=== PATIENT | female | born 2000 | race Caucasian/White ===

== ENCOUNTER 2018-06-21 03:19 | Outpatient (CLI) | payer MEDICAID ==
[2018-06-21 03:32] VITALS: BP 119/61
[2018-06-21] MEDS ORDERED: VISTARIL PO NR (08:17)
== END 2018-06-21 08:27 | disposition home or self-care (01) ==
LOC: TRG 03:19
PROVIDERS: ATTEND Obstetrics & Gynecology
DX: O62.8 Other abnormalities of forces of labor (principal); Z3A.39 39 weeks gestation of pregnancy
CPT/HCPCS: 59025; Q0177

== ENCOUNTER 2018-06-22 04:40 | Inpatient (IN) | payer MEDICAID ==
[2018-06-22] MEDS ORDERED: POLYCILLIN/NS 2 GM/100 ML 2 GM/100 ML BAG IV ONE (05:15)
[2018-06-22] MEDS ORDERED: LACTATED RINGERS 1,000 ML IV ONE ×2 (05:15→09:00)
[2018-06-22 06:04] LABS: Hemoglobin 9.5 gm/dl (10.1-14.3); Mean Corpuscular HGB Conc 33 % (30-34); Mean Corpuscular Volume 71 fl (79-97); Platelet Count 182 K/mm3 (140-440); Red Blood Count 4.07 M/mm3 (3.65-5.03); Red Cell Distribution Width 17.8 % (13.2-15.2)
--- NOTE | 2018-06-22 06:14 | Ultrasound Report ---
FINAL REPORT EXAM: US OB LIMITED HISTORY: Labor TECHNIQUE: A limited OB sonogram was obtained for evaluation of position. FINDINGS: The fetus is in cephalic presentation. The heart rate is 144 BPM. IMPRESSION: Cephalic presentation. The heart rate is 144 BPM.
[2018-06-22 06:40] LABS: Mean Corpuscular Hemoglobin 23 pg (28-32)
[2018-06-22] MEDS ORDERED: SUBLIMAZE ONE (07:26)
[2018-06-22] MEDS ORDERED: BRETHINE IVP PRN (07:38)
[2018-06-22] MEDS ORDERED: XYLOCAINE 2% INFILTRATI ONE (07:38)
[2018-06-22] MEDS ORDERED: STADOL IV PRN (07:38)
[2018-06-22] MEDS ORDERED: SUBLIMAZE IV PRN (07:38)
[2018-06-22] MEDS ORDERED: NUBAIN IV PRN (07:38)
[2018-06-22] MEDS ORDERED: BRETHINE SUB-Q PRN (07:38)
[2018-06-22] MEDS ORDERED: ZOFRAN IV PRN ×2 (07:38→21:31)
--- NOTE | 2018-06-22 07:47 | History and Physical Report ---
History of Present Illness Date of examination: 06/22/18 Date of admission: 06/22/18 07:02 Chief complaint: Labor History of present illness: Past History : 1 Term Births: 0 Premature Births: 0 Living Children: 0 Para: 0 Mult. Births: 0 Prev : 0 Prev. attempt? 0 Aborta: 0 Elect. Ab: 0 Spont. Ab: 0 Ectopics: 0 Past Medical History: Negative Past Medical History Past Surgical History: negative Past Medical History Anesthesia Complications: negative Anemia: negative Autoimmune Disorder: negative Bleeding Disorder: negative Blood Transfusions: negative Breast Disease: negative Diabetes: negative Heart Disease: negative Hypertension: negative Hepatitis/Liver Disease: negative Kidney Disease/UTI: negative Neurologic/Epilepsy/Migraines: negative Phlebitis/Varicosities: negative Psychiatric: negative Pulmonary Disease/Asthma: negative Thyroid Disease: negative Hospitalizations: negative Surgery (Non-nurse consultant): negative Family Hx: no known family history of illness or cancer Social Hx: no ETOH/smoking/drugs not working Infection History Hx of STD: none HIV Risk Eval: low risk Hepatitis B Risk Eval: low risk Personal hx. of genital herpes: no Partner hx. of genital herpes: no Rash, Viral, or Febrile illness since last LMP? no Varicella/Chicken Pox Status: Immunized Genetic History Congenital Heart Defect: Mom: no Dad: no Adan Disease: Mom: no Dad: no Thalassemia Mom: no Dad: no Neural Tube Defect Mom: no Dad: no Down's Syndrome Mom: no Dad: no Ilan-Sachs Mom: no Dad: no Sickle Cell Disease/Trait Mom: no Dad: no Hemophilia Mom: no Dad: no Muscular Dystrophy Mom: no Dad: no Cystic Fibrosis Mom: no Dad: no [place] Chorea Mom: no Dad: no Mental Retardation Mom: no Dad: no Fragile X Mom: no Dad: no Other Genetic/Chromosomal Disorder Mom: no Dad: no Child w/other defect Mom: no Dad: no Enviromental Exposures Xray Exposure: no Medication, drug, or alcohol use since LMP: no Chemical/Other Exposure: no Exposure to Cat Liter: no Hx of Parvovirus (Fifth Disease): no Occupational Exposure to Children: none Current Allergies (reviewed today): No known allergies Past History - Obstetrical History Expected Date of Delivery: 06/24/18 Actual Gestation: 39 Week(s) 5 Day(s) : 1 Medications and Allergies Allergies Allergy/AdvReac Type Severity Reaction Status Date / Time No Known Allergies Allergy Unverified 06/21/18 08:16 Home Medications Medication Instructions Recorded Confirmed Last Taken Type No Known Home Medications [No 06/21/18 06/21/18 Unknown History Reported Home Medications] Active Meds: Active Medications Butorphanol Tartrate (Stadol) 2 mg IV Q2H PRN PRN Reason: Pain , Severe (7-10) Ephedrine Sulfate (Ephedrine Sulfate) 10 mg IV Q2M PRN PRN Reason: Hypotension Fentanyl (Sublimaze) 100 mcg IV Q2H PRN PRN Reason: Labor Pain Lactated Ringer's (Lactated Ringers) 1,000 mls @ 125 mls/hr IV DIRECT KVNG Oxytocin/Sodium Chloride (Pitocin/Ns 20 Unit/1000ml Drip) 20 units in 1,000 mls @ 125 mls/hr IV DIRECT KVNG Oxytocin/Sodium Chloride (Pitocin/Ns 30 Unit/500ml) 30 units in 500 mls @ 4 mls /hr IV TITR KVNG; Protocol Lidocaine (Xylocaine 2%) 20 ml INFILTRATI ONCE ONE Stop: 06/22/18 07:39 Mineral Oil (Mineral Oil) 30 ml PO QHS PRN PRN Reason: Constipation Nalbuphine HCl (Nubain) 10 mg IV Q2H PRN PRN Reason: Pain, Moderate (4-6) Ondansetron HCl (Zofran) 4 mg IV Q8H PRN PRN Reason: Nausea And Vomiting Terbutaline Sulfate (Brethine) 0.25 mg SUB-Q ONCE PRN PRN Reason: Hyperstimulation/Hypertonicity Review of Systems All systems: negative Genitourinary: contractions - Vital Signs Vital signs: Vital Signs Temp Pulse Resp BP 97.9 F 76 20 138/93 06/22/18 04:52 06/22/18 04:52 06/22/18 04:52 06/22/18 04:52 Temp Pulse Resp BP Pulse Ox 97.9 F 76 20 138/93 06/22/18 04:52 06/22/18 04:52 06/22/18 04:52 06/22/18 04:52 - Physical Exam Breasts: Positive: deferred Cardiovascular: Regular rate Abdomen: Positive: soft. Negative: tenderness - Obstetrical FHR: category 1 Cervical Dilatation: 4 (per RN) Uterine Contraction Pattern: Irregular Results Result Diagrams: 06/22/18 04:44 Abnormal lab results 06/22/18 Range/Units 04:44 Hgb 9.5 L (10.1-14.3) gm/dl Hct 29.0 L (30.3-42.9) % MCV 71 L (79-97) fl MCH 23 L (28-32) pg RDW 17.8 H (13.2-15.2) % All other labs normal. Assessment and Plan - Patient Problems (1) 39 weeks gestation of Current Visit: Yes Status: Acute Plan to address problem: Admit Anticipate vaginal delivery (2) Active labor Current Visit: Yes Status: Acute (3) Anemia affecting in third trimester Current Visit: Yes Status: Acute
[2018-06-22] MEDS ORDERED: BENADRYL IV PRN (07:49)
[2018-06-22] MEDS ORDERED: NARCAN 2 MG/2 ML IV PRN (07:49)
[2018-06-22] MEDS ORDERED: NORMOSOL R PH IV ONE (07:49)
--- NOTE | 2018-06-22 07:49 | Anesthesia Consultation ---
Anesthesia Consult and Med Hx Date of service: 06/22/18 - Airway Anesthetic Teeth Evaluation: Good ROM Head & Neck: Adequate Mental/Hyoid Distance: Adequate Mallampati Class: Class II Intubation Access Assessment: Probably Good - Pulmonary Exam CTA: Yes - Cardiac Exam Cardiac Exam: RRR - Pre-Operative Health Status ASA Pre-Surgery Classification: ASA2 Proposed Anesthetic Plan: Epidural - Pulmonary Hx Smoking: No Hx Asthma: No - Cardiovascular System Hx Hypertension: No - Central Nervous System Hx Seizures: No Hx Back Pain: Yes (with ) Hx Psychiatric Problems: No - Endocrine Hx Renal Disease: No Hx Hypothyroidism: No Hx Hyperthyroidism: No - Hematic Hx Anemia: No Hx Sickle Cell Disease: No - Other Systems Hx Alcohol Use: No
[2018-06-22] MEDS ORDERED: LACTATED RINGERS 1,000 ML IV SCH ×2 (08:00→17:00)
[2018-06-22] MEDS ORDERED: PITOCin/NS 30 UNIT/500ML 30 UNITS/500 ML BAG IV SCH (08:00)
[2018-06-22] MEDS ORDERED: PITOCin/NS 20 UNIT/1000ML DRIP 20 UNITS/1,000 ML BAG IV SCH ×3 (08:00→21:31)
[2018-06-22] MEDS: fentaNYL-BUPIV 2 MCG/ML-0.125% 200 MCG/100 ML BAG EPIDURAL SCH ×2 (08:59→14:50)
[2018-06-22] MEDS ORDERED: LACTATED RINGERS 1,500 ML IV ONE (09:00)
--- NOTE | 2018-06-22 09:54 | Progress Note ---
Assessment and Plan Continue current management - Patient Problems (1) 39 weeks gestation of Current Visit: Yes Status: Acute (2) Active labor Current Visit: Yes Status: Acute (3) Anemia affecting in third trimester Current Visit: Yes Status: Acute Subjective - Subjective Date of service: 06/22/18 Principal diagnosis: IUP@39 weeks, labor Patient reports: contractions Objective - Vital Signs Vital Signs: Vital Signs - 12hr 06/22/18 06/22/18 06/22/18 04:52 07:59 08:03 Temperature 97.9 F 97.5 F L Pulse Rate 76 81 78 Respiratory 20 20 Rate Blood Pressure 132/75 Blood Pressure 138/93 132/75 [Left] O2 Sat by Pulse 97 Oximetry 06/22/18 06/22/18 06/22/18 08:05 08:09 08:10 Temperature Pulse Rate 80 79 73 Respiratory Rate Blood Pressure Blood Pressure [Left] O2 Sat by Pulse 97 93 99 Oximetry 06/22/18 06/22/18 06/22/18 08:15 08:20 08:22 Temperature Pulse Rate 83 69 83 Respiratory Rate Blood Pressure 134/73 Blood Pressure [Left] O2 Sat by Pulse 98 98 Oximetry 06/22/18 06/22/18 06/22/18 08:24 08:27 08:29 Temperature Pulse Rate 82 71 74 Respiratory Rate Blood Pressure 130/73 134/73 Blood Pressure [Left] O2 Sat by Pulse 99 87 98 Oximetry 06/22/18 06/22/18 06/22/18 08:30 08:33 08:34 Temperature Pulse Rate 77 81 79 Respiratory Rate Blood Pressure 127/61 117/56 Blood Pressure [Left] O2 Sat by Pulse 98 Oximetry 06/22/18 06/22/18 06/22/18 08:39 08:44 08:46 Temperature Pulse Rate 89 84 81 Respiratory Rate Blood Pressure 120/58 Blood Pressure [Left] O2 Sat by Pulse 99 98 Oximetry 06/22/18 06/22/18 06/22/18 08:49 08:54 08:55 Temperature Pulse Rate 87 80 80 Respiratory Rate Blood Pressure 115/57 Blood Pressure [Left] O2 Sat by Pulse 99 97 Oximetry 06/22/18 06/22/18 06/22/18 08:59 09:04 09:05 Temperature Pulse Rate 85 80 75 Respiratory Rate Blood Pressure 121/63 Blood Pressure [Left] O2 Sat by Pulse 98 98 Oximetry 06/22/18 06/22/18 06/22/18 09:09 09:14 09:16 Temperature Pulse Rate 78 73 75 Respiratory Rate Blood Pressure 130/68 Blood Pressure [Left] O2 Sat by Pulse 98 99 Oximetry 06/22/18 06/22/18 06/22/18 09:19 09:24 09:27 Temperature Pulse Rate 79 95 H 90 Respiratory Rate Blood Pressure 133/64 Blood Pressure [Left] O2 Sat by Pulse 99 98 Oximetry 06/22/18 06/22/18 06/22/18 09:29 09:34 09:35 Temperature Pulse Rate 83 75 70 Respiratory Rate Blood Pressure 129/68 Blood Pressure [Left] O2 Sat by Pulse 98 98 Oximetry 06/22/18 06/22/18 06/22/18 09:39 09:44 09:45 Temperature Pulse Rate 74 81 80 Respiratory Rate Blood Pressure 125/68 Blood Pressure [Left] O2 Sat by Pulse 97 97 Oximetry 06/22/18 06/22/18 09:49 09:54 Temperature Pulse Rate 76 85 Respiratory Rate Blood Pressure Blood Pressure [Left] O2 Sat by Pulse 99 98 Oximetry - Exam Cardiovascular: Regular rate Lungs: Normal air movement Abdomen: Absent: tenderness Vulva: both: normal Uterus: Present: fundal height above umbilicus FHR: category 1 Uterine Contraction Monitor Mode: External Cervical Dilatation: 7 Cervical Effacement Percentage: 80 station: 0 AROM, clear, IUPC placed without difficulty Uterine Contraction Frequency (min): 2-3 Uterine Contraction Pattern: Irregular - Labs Labs: Abnormal Labs 06/22/18 04:44 Hgb 9.5 L Hct 29.0 L MCV 71 L MCH 23 L RDW 17.8 H Laboratory Results - last 24 hr 06/22/18 04:44 WBC 10.1 RBC 4.07 Hgb 9.5 L Hct 29.0 L MCV 71 L MCH 23 L MCHC 33 RDW 17.8 H Plt Count 182
[2018-06-22] MEDS ORDERED: XYLOCAINE MPF 2% ONE ×5 (14:44→16:38)
[2018-06-22] MEDS ORDERED: MINERAL OIL ONE ×2 (15:03→15:56)
--- NOTE | 2018-06-22 16:26 | Progress Note ---
Assessment and Plan - Patient Problems (1) 39 weeks gestation of Current Visit: Yes Status: Acute (2) Active labor Current Visit: Yes Status: Acute (3) Anemia affecting in third trimester Current Visit: Yes Status: Acute Subjective - Subjective Date of service: 06/22/18 Principal diagnosis: IUP@39 weeks, labor Interval history: No descent with pushing, only 0 station with significant caput, however now with tachycardia, options reviewed. Concern for CPD explained and deterioration of status. Patient desires to proceed with c/s. Patient reports: contractions Objective - Vital Signs Vital Signs: Vital Signs - 12hr 06/22/18 06/22/18 06/22/18 04:52 07:59 08:03 Temperature 97.9 F 97.5 F L Pulse Rate 76 81 78 Respiratory 20 20 Rate Blood Pressure 132/75 Blood Pressure 138/93 132/75 [Left] O2 Sat by Pulse 97 Oximetry 06/22/18 06/22/18 06/22/18 08:05 08:09 08:10 Temperature Pulse Rate 80 79 73 Respiratory Rate Blood Pressure Blood Pressure [Left] O2 Sat by Pulse 97 93 99 Oximetry 06/22/18 06/22/18 06/22/18 08:15 08:20 08:22 Temperature Pulse Rate 83 69 83 Respiratory Rate Blood Pressure 134/73 Blood Pressure [Left] O2 Sat by Pulse 98 98 Oximetry 06/22/18 06/22/18 06/22/18 08:24 08:27 08:29 Temperature Pulse Rate 82 71 74 Respiratory Rate Blood Pressure 130/73 134/73 Blood Pressure [Left] O2 Sat by Pulse 99 87 98 Oximetry 06/22/18 06/22/18 06/22/18 08:30 08:33 08:34 Temperature Pulse Rate 77 81 79 Respiratory Rate Blood Pressure 127/61 117/56 Blood Pressure [Left] O2 Sat by Pulse 98 Oximetry 06/22/18 06/22/18 06/22/18 08:39 08:44 08:46 Temperature Pulse Rate 89 84 81 Respiratory Rate Blood Pressure 120/58 Blood Pressure [Left] O2 Sat by Pulse 99 98 Oximetry 06/22/18 06/22/18 06/22/18 08:49 08:54 08:55 Temperature Pulse Rate 87 80 80 Respiratory Rate Blood Pressure 115/57 Blood Pressure [Left] O2 Sat by Pulse 99 97 Oximetry 06/22/18 06/22/18 06/22/18 08:59 09:04 09:05 Temperature Pulse Rate 85 80 75 Respiratory Rate Blood Pressure 121/63 Blood Pressure [Left] O2 Sat by Pulse 98 98 Oximetry 06/22/18 06/22/18 06/22/18 09:09 09:14 09:16 Temperature Pulse Rate 78 73 75 Respiratory Rate Blood Pressure 130/68 Blood Pressure [Left] O2 Sat by Pulse 98 99 Oximetry 06/22/18 06/22/18 06/22/18 09:19 09:24 09:27 Temperature Pulse Rate 79 95 H 90 Respiratory Rate Blood Pressure 133/64 Blood Pressure [Left] O2 Sat by Pulse 99 98 Oximetry 06/22/18 06/22/18 06/22/18 09:29 09:34 09:35 Temperature Pulse Rate 83 75 70 Respiratory Rate Blood Pressure 129/68 Blood Pressure [Left] O2 Sat by Pulse 98 98 Oximetry 06/22/18 06/22/18 06/22/18 09:39 09:44 09:45 Temperature Pulse Rate 74 81 80 Respiratory Rate Blood Pressure 125/68 Blood Pressure [Left] O2 Sat by Pulse 97 97 Oximetry 06/22/18 06/22/18 06/22/18 09:49 09:54 09:57 Temperature Pulse Rate 76 85 81 Respiratory Rate Blood Pressure 110/59 Blood Pressure [Left] O2 Sat by Pulse 99 98 Oximetry 06/22/18 06/22/18 06/22/18 09:59 10:04 10:09 Temperature Pulse Rate 90 96 H 81 Respiratory Rate Blood Pressure Blood Pressure [Left] O2 Sat by Pulse 98 99 98 Oximetry 06/22/18 06/22/18 06/22/18 10:14 10:17 10:19 Temperature Pulse Rate 79 85 80 Respiratory Rate Blood Pressure 111/58 Blood Pressure [Left] O2 Sat by Pulse 98 97 Oximetry 06/22/18 06/22/18 06/22/18 10:24 10:29 10:33 Temperature Pulse Rate 83 81 79 Respiratory Rate Blood Pressure 131/68 Blood Pressure [Left] O2 Sat by Pulse 99 99 Oximetry 06/22/18 06/22/18 06/22/18 10:34 10:39 10:44 Temperature Pulse Rate 96 H 98 H 90 Respiratory Rate Blood Pressure Blood Pressure [Left] O2 Sat by Pulse 98 99 99 Oximetry 06/22/18 06/22/18 06/22/18 10:49 10:54 11:03 Temperature Pulse Rate 92 H 86 96 H Respiratory Rate Blood Pressure 138/67 Blood Pressure [Left] O2 Sat by Pulse 99 100 Oximetry 06/22/18 06/22/18 06/22/18 11:18 11:32 11:33 Temperature Pulse Rate 87 107 H 86 Respiratory Rate Blood Pressure 134/85 119/71 Blood Pressure [Left] O2 Sat by Pulse 97 Oximetry 06/22/18 06/22/18 06/22/18 11:37 11:42 11:47 Temperature Pulse Rate 89 88 83 Respiratory Rate Blood Pressure 111/61 Blood Pressure [Left] O2 Sat by Pulse 98 99 98 Oximetry 06/22/18 06/22/18 06/22/18 11:52 11:57 12:02 Temperature Pulse Rate 89 80 87 Respiratory Rate Blood Pressure Blood Pressure [Left] O2 Sat by Pulse 99 99 98 Oximetry 06/22/18 06/22/18 06/22/18 12:04 12:07 12:12 Temperature Pulse Rate 87 103 H 105 H Respiratory Rate Blood Pressure 117/60 Blood Pressure [Left] O2 Sat by Pulse 98 99 Oximetry 06/22/18 06/22/18 06/22/18 12:17 12:22 12:27 Temperature Pulse Rate 86 98 H 89 Respiratory Rate Blood Pressure 111/59 Blood Pressure [Left] O2 Sat by Pulse 97 98 97 Oximetry 06/22/18 06/22/18 06/22/18 12:32 12:37 12:48 Temperature Pulse Rate 95 H 99 H 87 Respiratory Rate Blood Pressure 121/78 127/63 Blood Pressure [Left] O2 Sat by Pulse 97 97 Oximetry 06/22/18 06/22/18 06/22/18 13:04 13:18 13:33 Temperature Pulse Rate 101 H 100 H 117 H Respiratory Rate Blood Pressure 133/86 136/92 133/85 Blood Pressure [Left] O2 Sat by Pulse Oximetry 06/22/18 06/22/18 06/22/18 13:48 14:03 14:19 Temperature Pulse Rate 92 H 116 H 109 H Respiratory Rate Blood Pressure 141/82 162/94 170/75 Blood Pressure [Left] O2 Sat by Pulse Oximetry 06/22/18 06/22/18 06/22/18 14:33 14:48 14:58 Temperature Pulse Rate 126 H 127 H 118 H Respiratory Rate Blood Pressure 141/90 159/81 155/94 Blood Pressure [Left] O2 Sat by Pulse Oximetry 06/22/18 06/22/18 06/22/18 15:04 15:19 15:23 Temperature Pulse Rate 130 H 122 H 117 H Respiratory Rate Blood Pressure 185/118 143/88 Blood Pressure [Left] O2 Sat by Pulse 98 Oximetry 06/22/18 06/22/18 06/22/18 15:28 15:33 15:34 Temperature Pulse Rate 95 H 113 H 115 H Respiratory Rate Blood Pressure 149/81 Blood Pressure [Left] O2 Sat by Pulse 98 100 Oximetry 06/22/18 06/22/18 06/22/18 15:38 15:43 15:48 Temperature Pulse Rate 117 H 143 H 107 H Respiratory Rate Blood Pressure 151/66 Blood Pressure [Left] O2 Sat by Pulse 99 100 100 Oximetry - Labs Labs: Abnormal Labs 06/22/18 04:44 Hgb 9.5 L Hct 29.0 L MCV 71 L MCH 23 L RDW 17.8 H Laboratory Results - last 24 hr 06/22/18 06/22/18 06/22/18 04:44 04:44 04:44 WBC 10.1 RBC 4.07 Hgb 9.5 L Hct 29.0 L MCV 71 L MCH 23 L MCHC 33 RDW 17.8 H Plt Count 182 RPR Nonreactive Blood Type O POSITIVE Antibody Screen Negative
[2018-06-22] MEDS ORDERED: BICITRA ONE (16:29)
[2018-06-22] MEDS ORDERED: REGLAN ONE (16:30)
[2018-06-22] MEDS ORDERED: PEPCID IV ONE ×2 (16:30→16:33)
[2018-06-22] MEDS ORDERED: WATER FOR IRRIG STERILE IR ONE (16:40)
[2018-06-22] MEDS ORDERED: NACL 0.9% IR ONE (16:40)
[2018-06-22] MEDS ORDERED: KETALAR ONE (16:56)
[2018-06-22] MEDS ORDERED: ANCEF/STERILE WATER 2 GM/20 ML 2 GM/20 ML SYRINGE IV NR (17:00)
[2018-06-22] MEDS ORDERED: HEMABATE IM ONE (17:04)
--- NOTE | 2018-06-22 18:39 | Operative Report ---
Operative Report Operative Report: Date: 06/22/2018 Preoperative diagnosis: 1. Intrauterine at 39 weeks 2. Failure to descend 3. tachycardia Postoperative diagnosis: 1. Intrauterine at 39 weeks 2. Failure to descend 3. tachycardia 4. Persistent occiput posterior presentation Procedure: Low uterine transverse incision for delivery Surgeon: Kailee Hood MD Operations Manager: Franci Shah CST Anesthesia: Epidural Anesthesiologist: [] Estimated blood loss: 500 mL Urine out: [] mL Findings: Live born female infant. Weight 8 lbs. 1 oz. Apgars 8 at 1 minute and 9 at 5 minutes. Uterus grossly normal, tubes grossly normal, ovaries grossly normal. Procedure: After risk, benefits, complications, consequences and alternatives for this procedure were discussed with patient and consents were reviewed and signed, she was taken to the OR where epidural anesthesia was bolused. She was then placed in the left lateral tilt position, and prepped and draped in the usual sterile fashion. Timeout was performed, and an appropriate level of anesthesia was noted, a Pfannenstiel incision was made and extended to the fascia which was incised and extended in the lateral directions. The overlying fascia was sharply dissected away from the underlying rectus muscles in the superior and inferior directions. The midline was entered bluntly. The vesicouterine fold was incised and with blunt dissection the bladder flap was created. A transverse incision was made in the lower uterine segment and extended in superiolateral direction with finger fractionation. Clear fluid was noted. The was delivered from cephalic occipitoposterior position. Mouth and nose were bulb suctioned. Spontaneous cry and excellent tone were noted. Cord was doubly clamped and cut. The infant was given to /resuscitation team present. The placenta was manually extracted. The uterus was then exteriorized and cleared of any further products of conception or placental tissue. The incision was reapproximated using 0 Vicryl in a running interlocking stitch. Grossly normal uterus, tubes and ovaries were noted. Once hemostasis was noted, the uterus was allowed back into the pelvic cavity. The pelvis was irrigated with warm normal saline. Again hemostasis was noted . Surgicel applied for further hemostasis. Interceed was then placed to prevent adhesions. Then attention was turned to the rectus muscles. The rectus muscles reapproximated using 0 Vicryl in a simple interrupted stitch x 3. Once hemostasis was noted, the fascia was reapproximated using 0 Vicryl running stitch fashion. Once hemostasis was noted skin incision was reapproximated using 4-0 Vicryl on a Froilan needle in a subcuticular manner. Counts were correct 3. Patient tolerated procedure well state recovery room in stable condition.
[2018-06-22] MEDS ORDERED: TORADOL IV ONE (19:00)
[2018-06-22] MEDS ORDERED: LANSINOH TP PRN (21:31)
[2018-06-22] MEDS ORDERED: NARCAN 0.4 MG/1 ML IV PRN (21:31)
[2018-06-22] MEDS ORDERED: TYLENOL PR PRN (21:31)
[2018-06-22] MEDS ORDERED: MYLICON PO PRN (21:31)
[2018-06-22] MEDS ORDERED: PHENERGAN PR PRN (21:31)
[2018-06-22] MEDS ORDERED: D5LR 1,000 ML IV SCH (21:31)
[2018-06-22] MEDS ORDERED: SODIUM CHLORIDE FLUSH SYRINGE 10 ML IV PRN (21:31)
[2018-06-22] MEDS ORDERED: TUCKS PAD TP PRN (21:31)
[2018-06-22] MEDS ORDERED: MILK OF MAGNESIA PO PRN (21:31)
[2018-06-22] MEDS ORDERED: TYLENOL PO PRN (21:31)
[2018-06-22] MEDS: MORPHINE IV PRN (21:58)
[2018-06-22] MEDS ORDERED: MINERAL OIL PO PRN (22:00)
[2018-06-23] MEDS ORDERED: TORADOL IV SCH
[2018-06-23] MEDS: ANCEF/NS 1 GM/50 ML 1 GM/50 ML BAG IV SCH ×2 (01:30→09:00)
[2018-06-23] MEDS: MORPHINE IV PRN (02:27)
--- NOTE | 2018-06-23 06:48 | Progress Note ---
Assessment and Plan - Patient Problems (1) delivery delivered Onset Date: ~06/22/18 Current Visit: Yes Status: Acute Plan to address problem: pt sleeping soundly No c/o voiced VSS FF below umb Lochia scant Dressing D&I to be removed. H&H pending Doing well s/p section P: Continue pathway Advance diet and activity as tolerated. Subjective - Subjective Date of service: 06/23/18 (pt sleeping) Principal diagnosis: Day # 1 s/p section Patient reports: voiding normally (clear yellow urine to BSB) : doing well Objective - Vital Signs Latest vital signs: Vital Signs Temp Pulse Resp BP BP Pulse Ox 06/23/18 06:03 98.6 F 127 H 20 116/67 100 06/23/18 02:27 18 06/23/18 02:26 18 06/23/18 00:18 99.2 F 96 H 18 114/56 100 06/23/18 00:01 99.6 F 125 H 18 125/69 100 06/22/18 22:28 18 06/22/18 22:13 99.3 F 105 H 20 114/66 100 06/22/18 21:58 18 06/22/18 19:00 100.0 F H 112 H 19 118/65 99 06/22/18 18:45 99.9 F H 108 H 16 106/70 99 06/22/18 18:30 107 H 20 116/70 99 06/22/18 18:15 107 H 19 113/63 99 06/22/18 18:10 106 H 18 122/65 99 06/22/18 18:05 106 H 18 102/59 99 06/22/18 18:00 109 H 15 111/61 99 06/22/18 17:55 105 H 13 107/61 99 06/22/18 17:51 99.9 F H 102 H 17 98 06/22/18 16:33 111 H 191/121 06/22/18 15:48 107 H 151/66 100 06/22/18 15:43 143 H 100 06/22/18 15:38 117 H 99 06/22/18 15:34 115 H 149/81 06/22/18 15:33 113 H 100 06/22/18 15:28 95 H 98 06/22/18 15:23 117 H 98 08/19/18 15:19 122 H 143/88 0819/18 15:04 130 H 185/118 08/18 14:58 118 H 155/94 06/22/18 14:48 127 H 159/81 18 14:33 126 H 141/90 08/18 14:19 109 H 170/75 18 14:03 116 H 162/94 18 13:48 92 H 141/82 18 13:33 117 H 133/85 18 13:18 100 H 136/92 18 13:04 101 H 133/86 06/22/18 12:48 87 127/63 18 12:37 99 H 97 06/22/18 12:32 95 H 121/78 97 06/22/18 12:27 89 97 06/22/18 12:22 98 H 98 06/22/18 12:17 86 111/59 97 18 12:12 105 H 99 06/22/18 12:07 103 H 98 06/22/18 12:04 87 117/60 06/22/18 12:02 87 98 06/22/18 11:57 80 99 0819/18 11:52 89 99 19/18 11:47 83 111/61 98 06/22/18 11:42 88 99 06/22/18 11:37 89 98 19/18 11:33 86 119/71 08/18 11:32 107 H 97 06/22/18 11:18 87 134/85 06/22/18 11:03 96 H 138/67 06/22/18 10:54 86 100 0819/18 10:49 92 H 99 19/18 10:44 90 99 0819/18 10:39 98 H 99 0819/18 10:34 96 H 98 0819/18 10:33 79 131/68 0819/18 10:29 81 99 08/19/18 10:24 83 99 08/19/18 10:19 80 97 0819/18 10:17 85 111/58 0819/18 10:14 79 98 0819/18 10:09 81 98 0819/18 10:04 96 H 99 19/18 09:59 90 98 06/22/18 09:57 81 110/59 0819/18 09:54 85 98 06/22/18 09:49 76 99 08/18 09:45 80 125/68 06/22/18 09:44 81 97 0819/18 09:39 74 97 19/18 09:35 70 129/68 19/18 09:34 75 98 06/22/18 09:29 83 98 18 09:27 90 133/64 06/22/18 09:24 95 H 98 19/18 09:19 79 99 08/18 09:16 75 130/68 06/22/18 09:14 73 99 18 09:09 78 98 18 09:05 75 121/63 18 09:04 80 98 06/22/18 08:59 85 98 18 08:55 80 115/57 18 08:54 80 97 18 08:49 87 99 18 08:46 81 120/58 06/22/18 08:44 84 98 18 08:39 89 99 18 08:34 79 98 18 08:33 81 117/56 06/22/18 08:30 77 127/61 06/22/18 08:29 74 98 06/22/18 08:27 71 134/73 87 18 08:24 82 130/73 99 06/22/18 08:22 83 134/73 18 08:20 69 98 18 08:15 83 98 18 08:10 73 99 06/22/18 08:09 79 93 18 08:05 80 97 18 08:03 78 132/75 18 07:59 97.5 F L 81 20 132/75 97 Intake and Output 06/22/18 08//18 18 14:59 22:59 06:59 Intake Total 2900 Output Total 100 Balance 2800 Intake: IV 2900 Output: Urine 100 - Exam Breasts: Present: normal Cardiovascular: Present: Regular rate Lungs: Present: Normal air movement Abdomen: Present: normal appearance, soft Uterus: Present: normal, fundal height below umbilicus Extremities: Present: normal Deep Tendon Reflex Grade: Normal +2 Incision: Present: normal, dry, intact
[2018-06-23 08:10] LABS: Hemoglobin 5.6 gm/dl (10.1-14.3)
[2018-06-23] MEDS ORDERED: NACL 0.9% 500 ML 500 ML IV ONE (08:17)
[2018-06-23] MEDS ORDERED: BENADRYL PO ONE (08:18)
[2018-06-23] MEDS ORDERED: TYLENOL PO ONE (08:18)
[2018-06-23] MEDS: PERCOCET 5/325 PO PRN ×2 (09:30→15:21)
--- NOTE | 2018-06-23 14:11 | Cat Scan Report ---
FINAL REPORT EXAM: CT ANGIO CHEST HISTORY: R/O PE TECHNIQUE: CTA of the chest was performed after the administration of intravenous contrast. Reconstructions were included in the coronal and sagittal planes. Rotating MIPS were included. PRIORS: None. FINDINGS: Pulmonary arteries and thoracic aorta: The study is adequate for diagnostic purposes. No central or segmental pulmonary embolism. The thoracic aorta is normal in caliber. Lungs and airways: There are small bilateral pleural effusions. No airspace consolidation. The airways are patent. No bronchiectasis. No pulmonary nodules or masses. Bilateral dependent atelectasis is seen. Mediastinum, heart, pericardium: No mediastinal lymphadenopathy. No cardiac chamber enlargement. No pericardial effusion. Thoracic inlet, chest wall, axilla: No chest wall masses. The visualized portions of the thyroid gland demonstrate no focal lesion. No axillary lymphadenopathy. Upper abdomen: There is a small volume of ascites. There is a small amount of free intra-abdominal air. Bones: No acute or chronic osseous finding. IMPRESSION: 1. No central or segmental pulmonary embolism. 2. Free air in the upper abdomen. Small volume of ascites. 3. Bilateral dependent atelectasis and small bilateral pleural effusions. Edvin critical results protocol was initiated.
--- NOTE | 2018-06-23 16:39 | Event Note ---
Date: 06/23/18 CT scan is negative for PE but does not small ateletasis and small pleural effusions. Will encouraged incentive spirometer and given one dose of lasix at this time.
[2018-06-23] MEDS ORDERED: LASIX IV ONE (17:00)
[2018-06-23] MEDS ORDERED: LASIX PO ONE (17:13)
[2018-06-23 21:59] LABS: Hematocrit 23.5 % (30.3-42.9); Hemoglobin 7.8 gm/dl (10.1-14.3)
[2018-06-24] MEDS: MOTRIN PO PRN ×2 (00:41→13:54)
[2018-06-24] MEDS ORDERED: BOOSTRIX IM ONE (06:00)
--- NOTE | 2018-06-24 08:03 | Progress Note ---
Assessment and Plan patient resting w/o complaints this morning. denies pain in chest or upper abd. She c/o gas pains. + Flatus. Incision D&I. Postop transfusion H&H increased to 7.8/23.5 - no s/s anemia. Temp noted 100.0 with tachycardia 127 noted around midnight. paper results on chart for EKG @ 0600 this morning with NST pulse rate 78. Will continue to monitor. - Patient Problems (1) Tachycardia Current Visit: Yes Status: Acute (2) Anemia Current Visit: Yes Status: Acute (3) delivery delivered Onset Date: ~06/22/18 Current Visit: Yes Status: Acute Subjective - Subjective Date of service: 06/24/18 Principal diagnosis: Day # 2 s/p section & transfusion Patient reports: appetite normal, voiding normally, pain well controlled, flatus , ambulating normally, no dizzy ambulation, no nauseated Woody: doing well, bottle feeding Objective - Vital Signs Latest vital signs: Vital Signs Temp Pulse Resp BP BP Pulse Ox 06/24/18 00:41 18 06/24/18 00:11 100.0 F H 127 H 18 131/79 98 06/23/18 17:55 98.3 F 72 18 114/64 06/23/18 16:33 98.5 F 112 H 18 117/68 06/23/18 16:03 98.2 F 115 H 18 120/78 06/23/18 15:33 98.1 F 112 H 18 122/71 06/23/18 15:03 98.5 F 118 H 18 123/81 06/23/18 14:48 98.2 F 121 H 20 123/82 06/23/18 14:15 98.3 F 117 H 20 121/79 06/23/18 13:15 98.4 F 120 H 20 116/74 06/23/18 12:45 98.3 F 136 H 20 112/68 06/23/18 12:30 98.7 F 132 H 20 112/67 06/23/18 10:55 99.2 F 140 H 22 121/62 06/23/18 10:37 127 H 20 06/23/18 10:25 98.9 F 157 H 20 124/72 06/23/18 10:10 98.8 F 127 H 20 134/82 06/23/18 08:24 98.3 F 138 H 16 125/73 Intake and Output 06/23/18 06/23/18 06/24/18 15:59 23:59 07:59 Intake Total 250 250 Output Total 650 Balance -400 250 Intake: Blood Product 250 250 Leukoreduced Rbc Part 2 250 Unit [id number] Leukoreduced Red Blood 0 250 Cells Unit [id number] Output: Urine 650 Void 650 Other: Total, Output Amount 350 # Voids Void 1 # Bowel Movements 1 - Exam Breasts: Present: normal Cardiovascular: Present: Regular rate Lungs: Present: Clear to auscultation, Normal air movement Abdomen: Present: normal appearance, soft, normal bowel sounds Vulva: both: normal Uterus: Present: normal, firm, fundal height at umbilicus Extremities: Present: normal Deep Tendon Reflex Grade: Normal +2 Incision: Present: normal, dry, intact - Labs Labs: Abnormal lab results 06/22/18 06/23/18 06/23/18 Range/Units 04:44 07:32 21:30 Hgb 5.6 L* D 7.8 L (10.1-14.3) gm/dl Hct 17.0 L* D 23.5 L D (30.3-42.9) % Crossmatch See Detail
--- NOTE | 2018-06-24 08:40 | Query-Anemia ---
Javon Patel Date:__06/24/18 Corporate Safety Manager/CDS:____davey Phone#:____[phone] Exercise your independent professional judgment when responding to this query. Questions asked do not imply a particular answer is desired or expected. We greatly appreciate your clarification on this issue. Clinical Documentation States: Taken from operative report () on 06/22/18 Preoperative diagnosis: 1. Intrauterine at 39 weeks 2. Failure to descend 3. tachycardia Postoperative diagnosis: 1. Intrauterine at 39 weeks 2. Failure to descend 3. tachycardia 4. Persistent occiput posterior presentation Procedure: Low uterine transverse incision for delivery Estimated blood loss: 500 mL Clinical Findings Show: 06/22/18 06/23/18 Hb 9.5 5.6 Hct 29 17 Patient transfused 2 U of RBC Etiology: [x ] Anemia due to acute blood loss [x ] Anemia due to chronic blood loss [ ] Anemia secondary to ESRD [ ] Anemia secondary to neoplastic disease [ ] Iron deficiency anemia due to malabsorption [ ] GI Bleed from: [ ] Anemia of chronic disease ,Other: [x ] Precipitous Drop in Hemoglobin [x] Precipitous Drop in Hematocrit [ ] Other: [ ] Unable to determine [ ] Comment/Explanation: Present on Admission: [x ] Yes (Y) [ ] Clinically undeterminable (W) [ ] No (N) Please also document response in your Progress Notes and/or Discharge Summary and indicate if the condition was present on admission. CARLOS
[2018-06-24] MEDS ORDERED: NORMODYNE PO SCH (15:36)
[2018-06-25] MEDS: MOTRIN PO PRN (06:44)
[2018-06-25] MEDS: PERCOCET 5/325 PO PRN (06:45)
--- NOTE | 2018-06-25 07:13 | Discharge Summary ---
Providers - Providers Date of Admission: 06/22/18 07:02 Date of discharge: 06/25/18 (pt c/o some pain; desires d/c today) Attending physician: HEMAL HERNÁNDEZ 06/22/18 21:31 Consult to Manager Enrollment [CONS] Routine Reason For Exam: Primary care physician: HEMAL HERNÁNDEZ Hospitalization Reason for admission: active labor Delivery: Procedure: primary low transverse Episiotomy: none Laceration: none Incision: normal, dry, intact Other procedures: none complications: transfusion (2 units postop H&H 03/20 post transfusion 05/26) Discharge diagnosis: IUP at term delivered baby: female Hospital course: uncomplicated section failure to descend pt OOB to toilet voiding VSS FF below umb Lochia scant Incision D&I H&H stable post transfusion No s/sx of anemia Doing well s/p section P: d/c today with instructions RTO 1 week post op care Condition at discharge: Good Disposition: DC-01 TO HOME OR SELFCARE - Discharge Diagnoses (1) delivery delivered Status: Acute Comment: RTO 1 week post op care Plan - Discharge Medications Prescriptions: Docusate Sodium [Colace] 100 mg PO DAILY #30 capsule Ferrous Sulfate [Feosol 325 MG tab] 325 mg PO BID #90 tablet Ibuprofen [Motrin 800 MG tab] 800 mg PO TID PRN #30 tablet PRN Reason: Pain oxyCODONE /ACETAMINOPHEN [Percocet 5/325 mg] 1 - 2 tab PO Q4HR PRN #30 tablet PRN Reason: Pain - Provider Discharge Summary Activity: routine, no sex for 6 weeks, no heavy lifting 4 weeks, no strenuous exercise Diet: routine Instructions: routine Additional instructions: [] Smoking cessation referral if applicable(refer to patient education folder for contact #) [] Refer to [facility] Booklet Call your doctor immediately for: * Fever > 100.5 * Heavy vaginal bleeding ( >1 pad per hour) * Severe persistent headache * Shortness of breath * Reddened, hot, painful area to leg or breast * Drainage or odor from incision. * Keep incision clean and dry at all times and follow doctor's instructions regarding bathing/showering - Follow up plan Follow up: HEMAL HERNÁNDEZ MD [Primary Care Provider] - 7 Days (Congratulations! Please call [phone] to schedule your postoperative visit in 1 week. Take medications as prescribed. Call with concerns.)
[2018-06-25 13:08] VITALS: BP 114/82
== END 2018-06-25 13:30 | disposition home or self-care (01) | DRG 765 ==
LOC: TRG 04:40 → LD 07:02 → OB 21:30
PROVIDERS: ADMIT Obstetrics & Gynecology; ATTEND Obstetrics & Gynecology
PROC: 10D00Z1 Extraction of Products of Conception, Low, Open Approach (ICD-10-PCS; principal; 2018-06-22)
PROC: 30233N1 Transfusion of Nonautologous Red Blood Cells into Peripheral Vein, Percutaneous Approach (ICD-10-PCS; 2018-06-23)
DX: O76 Abnormality in fetal heart rate and rhythm complicating labor and delivery (principal); D62 Acute posthemorrhagic anemia; O64.8XX0 Obstructed labor due to other malposition and malpresentation, not applicable or unspecified; O99.02 Anemia complicating childbirth; D50.0 Iron deficiency anemia secondary to blood loss (chronic); O64.0XX0 Obstructed labor due to incomplete rotation of fetal head, not applicable or unspecified; Z3A.39 39 weeks gestation of pregnancy; Z37.0 Single live birth
CPT/HCPCS: 36415; 71275; 76815; 85014; 85018; 85027; 86592; 86850; 86900; 86901; 86920; 93005; 93010; 99211; A6250; C1765; G0463; J0290; J0690; J1885; J1940; J2270; J2590; J2765; J3010; J7040; J7120; J7121; P9016; Q9967